=== PATIENT | female | born 1975 | race Caucasian/White ===

== ENCOUNTER 2017-08-20 14:04 | Emergency (ER) | payer SELFPAY ==
[2017-08-20 14:20] VITALS: BP 138/74
--- NOTE | 2017-08-20 14:46 | ER Document Report ---
ED General - General Chief Complaint: Headache Stated Complaint: HEADACHE/BODY ACHE Time Seen by Provider: 08/20/17 14:42 TRAVEL OUTSIDE OF THE [place] IN LAST 30 DAYS: No - HPI Patient complains to provider of: Medication refill Notes: Patient recently moved to the community from [place]. Has been out of her Seroquel for 3 days is looking for a refill 300 mg Seroquel at bedtime. Has attempted to call a local family doctor will follow-up in 2 days. Eyes all symptoms to me. States she just wants a refill. - Related Data Allergies/Adverse Reactions: clemastine fumarate [From Tavist-D] Allergy (Verified 08/20/17 14:05) morphine [Morphine] Allergy (Verified 08/20/17 14:05) Penicillins Allergy (Verified 08/20/17 14:05) phenylpropanolamine HCl [From Tavist-D] Allergy (Verified 08/20/17 14:05) Past Medical History - Social History Smoking Status: Unknown if Ever Smoked Family History: Other - Asthma. - Past Medical History Cardiac Medical History: Reports: Hx Hypertension Denies: Hx Coronary Artery Disease, Hx Heart Attack Pulmonary Medical History: Reports: Hx Asthma, Hx Bronchitis Denies: Hx COPD, Hx Pneumonia Neurological Medical History: Denies: Hx Cerebrovascular Accident, Hx Seizures Endocrine Medical History: Reports: Hx Diabetes Mellitus Type 2, Hx Hypothyroidism Renal/ Medical History: Reports: Hx Kidney Stones Musculoskeltal Medical History: Reports Hx Arthritis - Bursitis R hip, on Celebrex Psychiatric Medical History: Reports: Hx Bipolar Disorder, Hx Depression Past Surgical History: Denies: Hx Hysterectomy, Hx Pacemaker - Immunizations Hx Diphtheria, Pertussis, Tetanus Vaccination: Yes Hx Pneumococcal Vaccination: 03/19/00 Review of Systems - Review of Systems Notes: REVIEW OF SYSTEMS: CONSTITUTIONAL: -fevers, -chills EENT: -eye pain, -difficulty swallowing, -nasal congestion CARDIOVASCULAR: -chest pain, -syncope. RESPIRATORY: -cough, -SOB GASTROINTESTINAL: -abdominal pain, -nausea, -vomiting, -diarrhea GENITOURINARY: -dysuria, -hematuria MUSCULOSKELETAL: -back pain, -neck pain SKIN: -rash or skin lesions. HEMATOLOGIC: -easy bruising or bleeding. LYMPHATIC: -swollen, enlarged glands. NEUROLOGICAL: -altered mental status or loss of consciousness, -headache, - neurologic symptoms PSYCHIATRIC: -anxiety, -depression. ALL OTHER SYSTEMS REVIEWED AND NEGATIVE. Physical Exam - Vital signs Vitals: Temp Pulse Resp BP Pulse Ox 98.1 F 77 16 138/74 H 93 08/20/17 14:19 08/20/17 14:19 08/20/17 14:19 08/20/17 14:19 08/20/17 14:19 - Notes Notes: PHYSICAL EXAMINATION: GENERAL: Well-appearing, well-nourished and in no acute distress. HEAD: Atraumatic, normocephalic. EYES: Pupils equal round and reactive to light, extraocular movements intact, sclera anicteric, conjunctiva are normal. ENT: nares patent, oropharynx clear without exudates. Moist mucous membranes. NECK: Normal range of motion, supple without lymphadenopathy LUNGS: Breath sounds clear to auscultation bilaterally and equal. No wheezes rales or rhonchi. HEART: Regular rate and rhythm without murmurs ABDOMEN: Soft, nontender, normoactive bowel sounds. No guarding, no rebound. No masses appreciated. EXTREMITIES: Normal range of motion, no pitting or edema. No cyanosis. NEUROLOGICAL: Cranial nerves grossly intact. Normal speech, normal gait. Normal sensory and motor exams. PSYCH: Normal mood, normal affect. SKIN: Warm, Dry, normal turgor, no rashes or lesions noted. Course - Re-evaluation Re-evalutation: 08/20/17 14:43 Patient wants a refill of her Seroquel. - Vital Signs Vital signs: Temp Pulse Resp BP Pulse Ox 98.1 F 77 16 138/74 H 93 08/20/17 14:19 08/20/17 14:19 08/20/17 14:19 08/20/17 14:19 08/20/17 14:19 Discharge - Discharge Clinical Impression: Medication refill Condition: Stable Instructions: Headache ([facility]) Additional Instructions: Call [facility] in [place], [place] Prescriptions: Quetiapine Fumarate [Seroquel] 300 mg PO QHS #7 tablet Referrals: SHANTELLE RM MD [NO LOCAL MD] - Follow up as needed
== END 2017-08-20 14:49 | disposition home or self-care (01) ==
LOC: ER 14:04
DX: Z76.0 Encounter for issue of repeat prescription (principal); R51 Headache; M79.1 Myalgia; Z79.899 Other long term (current) drug therapy; I10 Essential (primary) hypertension; J45.909 Unspecified asthma, uncomplicated; E11.9 Type 2 diabetes mellitus without complications
CPT/HCPCS: 99281

== ENCOUNTER 2017-08-27 13:21 | Emergency (ER) | payer SELFPAY ==
[2017-08-27 13:32] VITALS: BP 145/93
--- NOTE | 2017-08-27 14:02 | ER Document Report ---
HPI - HPI Pain Level: 0 Notes: Patient is a 42-year-old female who presents to the ED for refill of her Seroquel that she takes at bedtime. Patient states that she has a history of mental health disorders and uses that to keep herself out of the hospital from having a "mental breakdown." Patient recently moved to the area from [place] and is scheduled for her initial appointment in 4 days with a therapist. Patient states that she is working on getting established with a primary care provider at [facility] as well. Patient states that she has no other concerns or complaints and would just like a refill. She has not had any visual or auditory hallucinations. She has no SI/HI. She is otherwise eating and drinking without difficulties. She is urinating normally and having normal bowel movements. Denies any headache, fever, neck pain, changes in vision/speech/mentation/hearing, URI, sore throat, chest pain, palpitations, syncope, cough, shortness of breath, wheeze, dyspnea, abdominal pain, nausea/ vomiting/diarrhea, urinary retention, dysuria, hematuria, or rash. - ROS Systems Reviewed and Negative: Yes All other systems reviewed and negative - CONSTITUTIONAL Constitutional: DENIES: Fever, Chills - EENT EENT: DENIES: Sore Throat, Ear Pain, Eye problems - NEURO Neurology: DENIES: Headache, Weakness, Vision blurred, Dizzinesss / Vertigo - CARDIOVASCULAR Cardiovascular: DENIES: Chest pain - RESPIRATORY Respiratory: DENIES: Trouble Breathing, Coughing - GASTROINTESTINAL Gastrointestinal: DENIES: Abdominal Pain, Black / Bloody Stools - URINARY Urinary: DENIES: Dysuria, Urgency, Frequency - REPRODUCTIVE Reproductive: DENIES: : - MUSCULOSKELETAL Musculoskeletal: DENIES: Extremity pain Past Medical History - Social History Smoking Status: Never Smoker Chew tobacco use (# tins/day): No Frequency of alcohol use: None Drug Abuse: None Family History: Reviewed & Not Pertinent, Other - Asthma. Patient has suicidal ideation: No Patient has homicidal ideation: No - Past Medical History Cardiac Medical History: Reports: Hx Hypertension Denies: Hx Coronary Artery Disease, Hx Heart Attack Pulmonary Medical History: Reports: Hx Asthma, Hx Bronchitis Denies: Hx COPD, Hx Pneumonia Neurological Medical History: Denies: Hx Cerebrovascular Accident, Hx Seizures Endocrine Medical History: Reports: Hx Diabetes Mellitus Type 2, Hx Hypothyroidism Renal/ Medical History: Reports: Hx Kidney Stones. Denies: Hx Peritoneal Dialysis Musculoskeltal Medical History: Reports Hx Arthritis - Bursitis R hip, on Celebrex Psychiatric Medical History: Reports: Hx Bipolar Disorder, Hx Depression Past Surgical History: Denies: Hx Hysterectomy, Hx Pacemaker - Immunizations Hx Diphtheria, Pertussis, Tetanus Vaccination: Yes Hx Pneumococcal Vaccination: 03/19/00 Vertical Provider Document - CONSTITUTIONAL Agree With Documented VS: Yes Notes: PHYSICAL EXAMINATION: GENERAL: Well-appearing, well-nourished and in no acute distress. HEAD: Atraumatic, normocephalic. EYES: Pupils equal round and reactive to light, extraocular movements intact, sclera anicteric, conjunctiva are normal. LUNGS: Breath sounds clear to auscultation bilaterally and equal. No wheezes rales or rhonchi. HEART: Regular rate and rhythm without murmurs, rubs, gallops. PSYCH: Normal mood, normal affect. SKIN: Warm, Dry, normal turgor, no rashes or lesions noted. - INFECTION CONTROL TRAVEL OUTSIDE OF THE [place] IN LAST 30 DAYS: No Course - Re-evaluation Re-evalutation: 08/27/17 13:59 Patient is an afebrile, well-hydrated, 42-year-old female who presents to the ED for medication refill of her Seroquel. Vitals are acceptable. PE is otherwise unremarkable. Patient has no SI/HI nor any visual or auditory hallucinations. No labs or imaging warranted at this time based on H&P. Advised patient that I will refill for 1 week, but she needs to establish with her PCM or get a refill from her psych provider thereafter. Return to the ED with any other worsening/concerning symptoms otherwise as reviewed discharge. Patient is in agreement. - Vital Signs Vital signs: Temp Pulse Resp BP Pulse Ox 98.5 F 79 20 145/93 H 96 08/27/17 13:31 08/27/17 13:31 08/27/17 13:31 08/27/17 13:31 08/27/17 13:31 Discharge - Discharge Clinical Impression: Medication refill Condition: Stable Disposition: HOME, SELF-CARE Additional Instructions: Establish with a primary care provider in the next week Keep appointment with your psych clinic as scheduled Return to the ED with any worsening symptoms and/or development of fever, headache, changes in behavior/mentation/vision/speech, chest pain, palpitations , syncope, shortness of breath, trouble breathing, abdominal pain, n/v/d, blood in stool/urine, loss of control of bowel/bladder, urinary retention, muscle weakness/paralysis, saddle anesthesia, numbness/tingling, suicidal/homicidal thoughts/ideations, or other worsening symptoms that are concerning to you. Prescriptions: Quetiapine Fumarate [Seroquel] 300 mg PO QHS #7 tablet Forms: Elevated Blood Pressure Referrals: [facility] [Provider Group] - Follow up as needed
== END 2017-08-27 14:06 | disposition home or self-care (01) ==
LOC: ER 13:21
DX: Z76.0 Encounter for issue of repeat prescription (principal); Z79.899 Other long term (current) drug therapy; I10 Essential (primary) hypertension; J45.909 Unspecified asthma, uncomplicated; E11.9 Type 2 diabetes mellitus without complications
CPT/HCPCS: 99281